=== PATIENT | female | born 1975 | race Caucasian/White ===

== ENCOUNTER → 2023-07-16 00:35 | Outpatient (CLI) | payer MEDICAID, SELFPAY ==
--- NOTE | 2023-07-16 08:00 | DI.CT_ITS ---
Exam(s) CT ABDOMEN PELVIS W EXAM: CT ABDOMEN PELVIS W CLINICAL HISTORY: pain, swelling, tachycardia 1 week after trauma,? abnormality due to trauma. TECHNIQUE: Imaging Protocol: Axial computed tomography images with coronal and sagittal reformatted images were created and reviewed CONTRAST MATERIAL: Intravenous: Omnipaque 350 Contrast volume:83 ml Oral: yes / COMPARISON: CT RENAL COLIC WO CONTRAST from 01/15/2014 FINDINGS: ABDOMEN: Lung Bases: Normal where visualized. No effusion. No contusion. No pneumothorax. Liver: Normal density. No measurable mass. No evidence of laceration. No subcapsular collection. Gallbladder and biliary tract: No radiodense calculus or dilation. Pancreas: Normal density, no abnormal calcifications or inflammatory process. Spleen: Normal. Kidneys: Normal size, contour and axis. No radiodense stones or obstructive uropathy. No suspicious m asses seen. Adrenal glands: No masses seen. Vasculature: Abdominal aorta non-dilated. Soft tissues: Unremarkable. PELVIS: Bladder: No gross wall thickening. No calculi.No focal mass. Bowel: Sigmoid diverticulosis. No evidence of diverticulitis. No obstruction. No bowel wall thick ening. Appendix normal. Peritoneal cavity: No ascites, collection or mesenteric inflammatory response. Bones: Minimally displaced fractures of the anterior right 9th and 10th ribs. Facet degenerative amos nges at L5-S1 greater on the left. Reproductive organs: Within normal limits. IUD. Lymph nodes: Unremarkable. IMPRESSION:: Right 9th and 10th rib fractures, otherwise negative. RADIATION DOSE DELIVERED: 711.21mGy.cm Total DLP DATA REPOSITORY: All CT scans at this facility are submitted to the National Radiology Data Registry (NRDR) Dose Index Registry (DIR) with the [employer] ([employer]). RADIATION OPTIMIZATION: All CT scans at this facility use at least one of these dose optimization te chniques: automated exposure control; mA and/or kV adjustment per patient size (includes targeted exa ms where dose is matched to clinical indication); or iterative reconstruction.
[2023-07-16] MEDS: Barium Sulfate 2% W/V-Creamy Vanilla Smoothie 450 ML BTL 900 ML PO (09:42)
[2023-07-16] MEDS: Omnipaque 350 MG/ML 500 ML BTL-Imaging package 100 ML IJ (11:39)
[2023-07-16] MEDS: Normal Saline - Diluent 50 ML VIAL IJ (11:39)
[2023-07-16] MEDS: Normal Saline Flush 10 ML SYR IVP (11:42)
== END ==
PROVIDERS: PCP Nurse Practitioner Family; Visit Provider Nurse Practitioner Family
DX: S22.41XA Multiple fractures of ribs, right side, initial encounter for closed fracture (principal); X58.XXXA Exposure to other specified factors, initial encounter
CPT/HCPCS: 74177

== ENCOUNTER 2025-10-01 11:12 | Outpatient (REF) | payer MEDICAID, SELFPAY ==
--- NOTE | 2025-10-01 08:50 | PAPFT_PTH ---
PATIENT: Patricia Chaney LOC: [facility] U#:[id number] AGE/SX: 50/F ROOM: RE10/01/[address]: Tarun Quiroz DNP : 1975 BED: DIS: 10/01/2025 SPEC #: [id number] RECD: 10/04/25 13:08 STATUS: CODIE REMarybeth #: [id number] DEBO: 10/01/25 08:[address]: Tarun Francois DEPT: [facility] Cytology RECD BY: Echo Cage Tissues: 1 - CX/ENDOCX FOR PAP SMEARS Procedures: PAP THIN PREP/[facility] Screening HPV DNA PROBE Comments: [id number] (HPV 16 & 18/45)
== END 2025-10-01 11:13 | disposition home or self-care (01) ==
LOC: LBN 11:12
PROVIDERS: PCP Nurse Practitioner Family; Visit Provider Nurse Practitioner Family
DX: Z12.4 Encounter for screening for malignant neoplasm of cervix (principal)
CPT/HCPCS: 88142; 87624